=== PATIENT | male | born 1945 | race Two or more races ===

== ENCOUNTER 2022-10-26 08:17 | Outpatient (CLI) | payer MEDICARE, OTHER | END 2022-10-26 23:59 | disposition home or self-care (01) | LOC: LAB 08:17 | PROVIDERS: ATTEND Orthopaedic Surgery | DX: Z01.812 Encounter for preprocedural laboratory examination (principal); Z20.822 Contact with and (suspected) exposure to COVID-19 | CPT/HCPCS: U0003; C9803 ==

== ENCOUNTER 2022-11-02 07:00 | Inpatient (IN) | payer MEDICARE, OTHER ==
[~2022-11-02] VITALS: Ht 170.2 cm; Wt 105.8 kg
[2022-11-02] MEDS ORDERED: POLYMYXIN B SULFATE 500,000 UNITS ONE (07:08)
[2022-11-02] MEDS ORDERED: BUPIVACAINE 0.25% 75 MG/30 ML VIAL ONE ×2 (07:09→11:23)
[2022-11-02 08:00] VITALS: BP 202/110
[2022-11-02 08:10] VITALS: BP 200/110
[2022-11-02] MEDS ORDERED: CARV12.52 PO (08:40)
[2022-11-02] MEDS ORDERED: DILT-32 PO (08:40)
[2022-11-02] MEDS ORDERED: METF-440 PO (08:40)
[2022-11-02] MEDS ORDERED: SITA50TA PO (08:40)
[2022-11-02] MEDS ORDERED: ALOG25TA2 PO (08:40)
[2022-11-02] MEDS ORDERED: TRIA1TAB98 PO (08:40)
[2022-11-02] MEDS ORDERED: MECL-159 PO (08:40)
[2022-11-02] MEDS ORDERED: NIFE-34 PO (08:40)
[2022-11-02] MEDS ORDERED: LOSA50TA39 PO (08:40)
[2022-11-02] MEDS ORDERED: NABU-139 PO (08:40)
[2022-11-02] MEDS ORDERED: GABA-532 PO (08:40)
[2022-11-02] MEDS ORDERED: TAMS-12 PO (08:40)
[2022-11-02] MEDS ORDERED: GEMF600T90 PO (08:40)
[2022-11-02] MEDS ORDERED: AMLO-213 PO (08:40)
[2022-11-02] MEDS ORDERED: CELECOXIB 100 MG CAPSULE PO STA (09:44)
[2022-11-02] MEDS ORDERED: ACETAMINOPHEN ES 500 MG TABLET PO STA (09:44)
[2022-11-02] MEDS ORDERED: GABAPENTIN 300 MG CAPSULE PO STA (09:44)
[2022-11-02] MEDS ORDERED: CLONIDINE HCL 0.1 MG TABLET PO PRN (10:30)
[2022-11-02] MEDS ORDERED: MAG HYDROX/AL HYDROX/SIMETH 30 ML UDC PO PRN (10:30)
[2022-11-02] MEDS ORDERED: diphenhydrAMINE HCL 25 MG CAPSULE PO PRN (10:30)
[2022-11-02] MEDS ORDERED: MAGNESIUM HYDROXIDE 30 ML UDC PO PRN (10:30)
[2022-11-02] MEDS ORDERED: FENTANYL PF 100MCG/2ML AMPUL ONE ×2 (10:41→10:59)
[2022-11-02] MEDS ORDERED: HYDROMORPHONE INJ 2 MG/ML DISP.SYRIN ONE (10:42)
[2022-11-02] MEDS ORDERED: TRANEXAMIC ACID 1,000 MG/10 ML VIAL ONE (10:42)
[2022-11-02] MEDS ORDERED: BUPIVACAINE MPF 0.75% 30 ML VIAL ONE (10:42)
[2022-11-02] MEDS ORDERED: MIDAZOLAM HCL 2 MG/2ML VIAL ONE (10:51)
[2022-11-02] MEDS ORDERED: ROCURONIUM BROMIDE 50 MG/5 ML ONE (10:59)
[2022-11-02] MEDS ORDERED: MORPHINE SULFATE/PF 10 MG/10ML (1MG/ML) AMPUL ONE (11:23)
[2022-11-02] MEDS ORDERED: hydrALAZINE HCL IV 20 MG VIAL ONE (11:43)
[2022-11-02] MEDS ORDERED: SENNOSIDES 8.6 MG TABLET PO PRN ×2 (14:30)
[2022-11-02] MEDS ORDERED: BISACODYL SUPP (10 MG) 10 MG/SUPP.RECT SUPP.RECT RC PRN (14:30)
[2022-11-02] MEDS ORDERED: ONDANSETRON HCL/PF 4 MG/2 ML VIAL IVP PRN ×2 (14:30→18:30)
[2022-11-02] MEDS: HYDROMORPHONE 1 MG/1 ML DISP.SYRIN IM/IV/SC PRN (14:34)
[2022-11-02 16:09] VITALS: BP 150/77
[2022-11-02] MEDS: GABAPENTIN 300 MG CAPSULE PO SCH (17:51)
[2022-11-02] MEDS: DOCUSATE SODIUM 100 MG CAPSULE PO SCH (17:51)
[2022-11-02] MEDS: AMLODIPINE BESYLATE 5 MG TABLET PO SCH (17:51)
[2022-11-02] MEDS ORDERED: DEXTROSE 50%-WATER 50 ML DISP.SYRIN IV PRN (18:30)
[2022-11-02] MEDS ORDERED: ACETAMINOPHEN 325 MG TABLET PO PRN (18:30)
[2022-11-02] MEDS: ANCEF 1 GM/50 ML D5W IV SCH ×2 (19:35)
[2022-11-02 20:00] VITALS: BP 153/80
[2022-11-02] MEDS ORDERED: LOSARTAN POTASSIUM 50 MG TABLET PO SCH (21:00)
[2022-11-02] MEDS: FAMOTIDINE (20 MG) 20 MG TABLET PO SCH (21:18)
[2022-11-02] MEDS: BLOOD SUGAR DIAGNOSTIC 1 EACH STRIP VI SCH (21:29)
[2022-11-02] MEDS: *INSULIN REGULAR(HUMULIN R)HUM 100 UNIT/ML VIAL SQ PRN (21:35)
[2022-11-02] MEDS ORDERED: TAMSULOSIN 0.4 MG CAP.SR.24H PO SCH (22:00)
[2022-11-03] MEDS: HYDROCODONE/APAP 5/325MG TABLET PO PRN ×4 (01:57→19:07)
[2022-11-03] MEDS: ANCEF 1 GM/50 ML D5W IV SCH ×2 (03:26)
[2022-11-03] MEDS: AMLODIPINE BESYLATE 5 MG TABLET PO SCH ×2 (06:01→18:14)
[2022-11-03] MEDS: BLOOD SUGAR DIAGNOSTIC 1 EACH STRIP VI SCH ×4 (06:11→22:20)
[2022-11-03] MEDS: INSULIN REGULAR, HUMAN 100 UNIT/ML 3 ML VIAL SQ PRN ×4 (06:17→22:23)
[2022-11-03 06:23] LABS: BASOPHILS % (AUTO) 0.1 % (0.0-2.0); HEMATOCRIT 36 % (39-51); HEMOGLOBIN 11.1 g/dL (13.5-17.5); LYMPHOCYTES # (AUTO) 1.4 K/uL (0.8-4.8); LYMPHOCYTES % (AUTO) 10.1 % (20.0-44.0); MEAN CORPUSCULAR HGB CONC 31 g/dl (31.0-36.0); MEAN CORPUSCULAR VOLUME 91 fL (80-96); MONOCYTES # (AUTO) 1.4 K/uL (0.1-1.30); MONOCYTES % (AUTO) 10.1 % (2.0-12.0); NEUTROPHILS # (AUTO) 10.7 K/uL (1.8-8.9); NEUTROPHILS % (AUTO) 79.7 % (43.0-81.0); PLATELET COUNT (AUTO) 199 K/uL (150-450); RED BLOOD CELL COUNT(AUTO) 3.94 MIL/uL (4.5-6.0); WHITE BLOOD COUNT (AUTO) 13.4 K/uL (4.3-11.0)
[2022-11-03 06:50] LABS: ALANINE AMINOTRANSFERASE 20 U/L (12-78); ALBUMIN 3.3 g/dL (3.4-5.0); ALKALINE PHOSPHATASE 72 U/L (46-116); ASPARTATE AMINOTRANSFERASE 17 U/L (15-37); BILIRUBIN,TOTAL 0.4 mg/dL (0.2-1.0); CALCIUM, SERUM 8.6 mg/dL (8.5-10.1); CARBON DIOXIDE 21 mmol/L (21-32); CHLORIDE 100 mmol/L (98-107); CREATININE 1.8 mg/dL (0.6-1.3); GLUCOSE 173 mg/dL (74-106); MAGNESIUM 1.9 mg/dL (1.8-2.4); PHOSPHORUS 4.1 mg/dL (2.5-4.9); POTASSIUM 4.1 mmol/L (3.5-5.1); SODIUM SERUM 132 mmol/L (136-145); TOTAL PROTEIN, SERUM 6.8 g/dL (6.4-8.2); UREA NITROGEN, BLOOD 28 mg/dL (7-18)
[2022-11-03 08:00] VITALS: BP 151/95
[2022-11-03] MEDS: GABAPENTIN 300 MG CAPSULE PO SCH ×2 (09:00→17:00)
[2022-11-03] MEDS: GABAPENTIN 100 MG CAPSULE PO SCH ×2 (09:00→17:10)
[2022-11-03] MEDS ORDERED: NABUMETONE 500 MG TABLET PO SCH (09:00)
[2022-11-03] MEDS: METFORMIN 500 MG TABLET PO SCH ×2 (09:00→17:10)
[2022-11-03] MEDS: DOCUSATE SODIUM 100 MG CAPSULE PO SCH ×2 (09:01→17:10)
[2022-11-03] MEDS: DILTIAZEM HCL CD 120 MG PO SCH (09:01)
[2022-11-03] MEDS: FAMOTIDINE (20 MG) 20 MG TABLET PO SCH ×2 (09:02→20:48)
[2022-11-03] MEDS: TAMSULOSIN 0.4 MG CAP.SR.24H PO SCH (09:02)
[2022-11-03] MEDS: LOSARTAN POTASSIUM 50 MG TABLET PO SCH ×2 (09:02→17:10)
[2022-11-03] MEDS: NIFEdipine XL (30MG) 30 MG TAB PO SCH (09:03)
[2022-11-03] MEDS: CARVEDILOL 12.5 MG TABLET PO SCH (09:03)
[2022-11-03] MEDS: MECLIZINE HCL 25 MG TABLET PO SCH ×3 (09:04→17:09)
[2022-11-03] MEDS: LINAGLIPTIN 5 MG TABLET PO SCH (09:04)
[2022-11-03] MEDS: GEMFIBROZIL 600 MG TABLET PO SCH (09:04)
[2022-11-03] MEDS: TRIAMTERENE/HYDROCHLOROTHIAZID (37.5/25MG) 1 UDCAP PO SCH (09:05)
[2022-11-03] MEDS: RIVAROXABAN 10 MG TABLET PO SCH (12:36)
[2022-11-03] MEDS: IV 1/2NS 1000 ML 1,000 ML IV PRN (12:37)
[2022-11-03] MEDS: AMLODIPINE BESYLATE 10 MG TABLET PO SCH (12:40)
[2022-11-03 15:30] LABS: BILIRUBIN,URINE NEGATIVE (NEGATIVE); COLOR,URINE LIGHT YELLOW (YELLOW); LEUKOCYTE ESTERASE ,URINE NEGATIVE (NEGATIVE); NITRITE, URINE NEGATIVE (NEGATIVE); PH,URINE 6.5 (5.0-8.0); PROTEIN,URINE NEGATIVE (NEGATIVE); UGLUCOSE NEGATIVE (NEGATIVE); UROBILINOGEN,URINE 0.2 EU/dL (0.2)
[2022-11-03 16:00] VITALS: BP 146/88
[2022-11-03] MEDS: HYDROMORPHONE 1 MG/1 ML DISP.SYRIN IM/IV/SC PRN ×2 (17:09→23:27)
[2022-11-03 20:00] VITALS: BP 146/79
[2022-11-04] MEDS: BLOOD SUGAR DIAGNOSTIC 1 EACH STRIP VI SCH ×4 (07:05→22:12)
[2022-11-04] MEDS: INSULIN REGULAR, HUMAN 100 UNIT/ML 3 ML VIAL SQ PRN ×3 (07:07→18:45)
[2022-11-04] MEDS: HYDROMORPHONE 1 MG/1 ML DISP.SYRIN IM/IV/SC PRN ×2 (07:38→15:03)
[2022-11-04 08:00] VITALS: BP 139/91
[2022-11-04] MEDS: GABAPENTIN 100 MG CAPSULE PO SCH ×2 (09:00→17:55)
[2022-11-04] MEDS ORDERED: LINAGLIPTIN 5 MG TABLET PO SCH (09:00)
[2022-11-04 09:23] LABS: BASOPHILS % (AUTO) 0.3 % (0.0-2.0); EOSINOPHILS % (AUTO) 0.3 % (0.0-6.0); HEMATOCRIT 33 % (39-51); HEMOGLOBIN 10.6 g/dL (13.5-17.5); LYMPHOCYTES % (AUTO) 14.1 % (20.0-44.0); MEAN CORPUSCULAR HGB CONC 32 g/dl (31.0-36.0); MEAN CORPUSCULAR VOLUME 88 fL (80-96); MONOCYTES # (AUTO) 1.7 K/uL (0.1-1.30); MONOCYTES % (AUTO) 12.4 % (2.0-12.0); NEUTROPHILS # (AUTO) 10.3 K/uL (1.8-8.9); NEUTROPHILS % (AUTO) 72.9 % (43.0-81.0); PLATELET COUNT (AUTO) 193 K/uL (150-450); RED BLOOD CELL COUNT(AUTO) 3.76 MIL/uL (4.5-6.0); WHITE BLOOD COUNT (AUTO) 14.1 K/uL (4.3-11.0)
[2022-11-04 09:43] LABS: CALCIUM, SERUM 8.7 mg/dL (8.5-10.1); CARBON DIOXIDE 27 mmol/L (21-32); CHLORIDE 100 mmol/L (98-107); CREATININE 1.5 mg/dL (0.6-1.3); GLUCOSE 172 mg/dL (74-106); POTASSIUM 3.9 mmol/L (3.5-5.1); SODIUM SERUM 133 mmol/L (136-145); UREA NITROGEN, BLOOD 32 mg/dL (7-18)
[2022-11-04 09:52] LABS: ALANINE AMINOTRANSFERASE 17 U/L (12-78); ALBUMIN 3.2 g/dL (3.4-5.0); ALKALINE PHOSPHATASE 65 U/L (46-116); ASPARTATE AMINOTRANSFERASE 19 U/L (15-37); BILIRUBIN,TOTAL 0.7 mg/dL (0.2-1.0); TOTAL PROTEIN, SERUM 6.9 g/dL (6.4-8.2)
[2022-11-04] MEDS: METFORMIN 500 MG TABLET PO SCH ×2 (10:27→17:54)
[2022-11-04] MEDS: GABAPENTIN 300 MG CAPSULE PO SCH ×2 (10:27→17:00)
[2022-11-04] MEDS: LINAGLIPTIN 5 MG TABLET PO SCH (10:27)
[2022-11-04] MEDS: FAMOTIDINE (20 MG) 20 MG TABLET PO SCH ×2 (10:28→20:02)
[2022-11-04] MEDS: TRIAMTERENE/HYDROCHLOROTHIAZID (37.5/25MG) 1 UDCAP PO SCH (10:28)
[2022-11-04] MEDS: NIFEdipine XL (30MG) 30 MG TAB PO SCH (10:28)
[2022-11-04] MEDS: GEMFIBROZIL 600 MG TABLET PO SCH (10:28)
[2022-11-04] MEDS: DOCUSATE SODIUM 100 MG CAPSULE PO SCH ×2 (10:28→17:54)
[2022-11-04] MEDS: MECLIZINE HCL 25 MG TABLET PO SCH ×3 (10:28→17:55)
[2022-11-04] MEDS: LOSARTAN POTASSIUM 50 MG TABLET PO SCH ×2 (10:29→17:00)
[2022-11-04] MEDS: AMLODIPINE BESYLATE 10 MG TABLET PO SCH (10:29)
[2022-11-04] MEDS: CARVEDILOL 12.5 MG TABLET PO SCH (10:30)
[2022-11-04] MEDS: TAMSULOSIN 0.4 MG CAP.SR.24H PO SCH (10:30)
[2022-11-04] MEDS: DILTIAZEM HCL CD 120 MG PO SCH (10:30)
[2022-11-04] MEDS: IV 1/2NS 1000 ML 1,000 ML IV PRN (15:53)
[2022-11-04 15:55] VITALS: BP 117/61
[2022-11-04] MEDS: RIVAROXABAN 10 MG TABLET PO SCH (18:01)
[2022-11-04 20:00] VITALS: BP 104/61
[2022-11-04] MEDS: HYDROCODONE/APAP 5/325MG TABLET PO PRN (20:02)
[2022-11-04] MEDS: *INSULIN REGULAR(HUMULIN R)HUM 100 UNIT/ML VIAL SQ PRN (21:40)
[2022-11-04 22:16] VITALS: BP 104/61
[2022-11-05] MEDS: INSULIN REGULAR, HUMAN 100 UNIT/ML 3 ML VIAL SQ PRN ×3 (05:48→17:27)
[2022-11-05] MEDS: IV 1/2NS 1000 ML 1,000 ML IV PRN (06:09)
[2022-11-05 06:12] LABS: BASOPHILS % (AUTO) 0.2 % (0.0-2.0); EOSINOPHILS % (AUTO) 0.5 % (0.0-6.0); HEMATOCRIT 31 % (39-51); LYMPHOCYTES # (AUTO) 2.4 K/uL (0.8-4.8); LYMPHOCYTES % (AUTO) 15.7 % (20.0-44.0); MEAN CORPUSCULAR HGB CONC 33 g/dl (31.0-36.0); MEAN CORPUSCULAR VOLUME 87 fL (80-96); MONOCYTES # (AUTO) 1.8 K/uL (0.1-1.30); MONOCYTES % (AUTO) 11.8 % (2.0-12.0); NEUTROPHILS % (AUTO) 71.8 % (43.0-81.0); PLATELET COUNT (AUTO) 208 K/uL (150-450); RED BLOOD CELL COUNT(AUTO) 3.51 MIL/uL (4.5-6.0); WHITE BLOOD COUNT (AUTO) 15.4 K/uL (4.3-11.0)
[2022-11-05 06:23] LABS: ALANINE AMINOTRANSFERASE 16 U/L (12-78); ALBUMIN 2.6 g/dL (3.4-5.0); ALKALINE PHOSPHATASE 59 U/L (46-116); ASPARTATE AMINOTRANSFERASE 15 U/L (15-37); BILIRUBIN,TOTAL 0.4 mg/dL (0.2-1.0); CALCIUM, SERUM 8.6 mg/dL (8.5-10.1); CARBON DIOXIDE 22 mmol/L (21-32); CHLORIDE 100 mmol/L (98-107); CREATININE 2.8 mg/dL (0.6-1.3); GLUCOSE 176 mg/dL (74-106); SODIUM SERUM 132 mmol/L (136-145); TOTAL PROTEIN, SERUM 6.4 g/dL (6.4-8.2); UREA NITROGEN, BLOOD 50 mg/dL (7-18)
[2022-11-05] MEDS: BLOOD SUGAR DIAGNOSTIC 1 EACH STRIP VI SCH ×4 (06:31→22:45)
[2022-11-05] MEDS: MENTHOL/CETYLPYRD (CEPACOL) 1 LOZ LOZENGE PO PRN (06:31)
[2022-11-05 08:18] VITALS: BP 95/56
[2022-11-05] MEDS ORDERED: VANCOMYCIN 1.5 GM in IV D5W 500 ML IV ONE (09:00)
[2022-11-05] MEDS: LOSARTAN POTASSIUM 50 MG TABLET PO SCH ×2 (09:00→17:00)
[2022-11-05] MEDS: CARVEDILOL 12.5 MG TABLET PO SCH (09:00)
[2022-11-05] MEDS: TRIAMTERENE/HYDROCHLOROTHIAZID (37.5/25MG) 1 UDCAP PO SCH (09:00)
[2022-11-05] MEDS: NIFEdipine XL (30MG) 30 MG TAB PO SCH (09:00)
[2022-11-05] MEDS: AMLODIPINE BESYLATE 10 MG TABLET PO SCH (09:00)
[2022-11-05] MEDS: DILTIAZEM HCL CD 120 MG PO SCH (09:00)
[2022-11-05] MEDS: TAMSULOSIN 0.4 MG CAP.SR.24H PO SCH (09:02)
[2022-11-05] MEDS: FAMOTIDINE (20 MG) 20 MG TABLET PO SCH ×2 (09:02→21:47)
[2022-11-05] MEDS: MECLIZINE HCL 25 MG TABLET PO SCH ×3 (09:02→17:21)
[2022-11-05] MEDS: DOCUSATE SODIUM 100 MG CAPSULE PO SCH ×2 (09:02→17:19)
[2022-11-05] MEDS: GABAPENTIN 300 MG CAPSULE PO SCH ×2 (09:02→17:22)
[2022-11-05] MEDS: GEMFIBROZIL 600 MG TABLET PO SCH (09:06)
[2022-11-05] MEDS: CEFEPIME 2 GM in IV D5W 100 ML IV SCH (09:07)
[2022-11-05] MEDS: HYDROMORPHONE 1 MG/1 ML DISP.SYRIN IM/IV/SC PRN (09:15)
[2022-11-05 15:21] LABS: BILIRUBIN,URINE NEGATIVE (NEGATIVE); COLOR,URINE YELLOW (YELLOW); LEUKOCYTE ESTERASE ,URINE NEGATIVE (NEGATIVE); NITRITE, URINE NEGATIVE (NEGATIVE); PROTEIN,URINE TRACE mg/dl (NEGATIVE); UGLUCOSE NEGATIVE (NEGATIVE); UROBILINOGEN,URINE 0.2 EU/dL (0.2)
[2022-11-05 15:36] LABS: BACTERIA,URINE Moderate /HPF (None Seen); RBC,URINE NONE SEEN /HPF (0-2); SQUAMOUS EPITHELIAL CELL,UR Few /HPF (None Seen); WBC,URINE 0-2 /HPF (0-3)
[2022-11-05 15:53] VITALS: BP_SYST 100; BP_SYST 93; BP_DIAS 53; BP_DIAS 56
[2022-11-05] MEDS: RIVAROXABAN 10 MG TABLET PO SCH (17:23)
[2022-11-05 20:00] VITALS: BP 105/52
[2022-11-05] MEDS: *INSULIN REGULAR(HUMULIN R)HUM 100 UNIT/ML VIAL SQ PRN (22:49)
[2022-11-06] MEDS: IV 1/2NS 1000 ML 1,000 ML IV PRN (02:34)
[2022-11-06 06:12] LABS: BASOPHILS % (AUTO) 0.1 % (0.0-2.0); EOSINOPHILS % (AUTO) 0.8 % (0.0-6.0); HEMATOCRIT 31 % (39-51); LYMPHOCYTES % (AUTO) 14.4 % (20.0-44.0); MEAN CORPUSCULAR HGB CONC 32 g/dl (31.0-36.0); MEAN CORPUSCULAR VOLUME 87 fL (80-96); MONOCYTES # (AUTO) 1.7 K/uL (0.1-1.30); MONOCYTES % (AUTO) 11.9 % (2.0-12.0); NEUTROPHILS # (AUTO) 10.3 K/uL (1.8-8.9); NEUTROPHILS % (AUTO) 72.8 % (43.0-81.0); PLATELET COUNT (AUTO) 253 K/uL (150-450); RED BLOOD CELL COUNT(AUTO) 3.55 MIL/uL (4.5-6.0); WHITE BLOOD COUNT (AUTO) 14.2 K/uL (4.3-11.0)
[2022-11-06 06:34] LABS: ALANINE AMINOTRANSFERASE 21 U/L (12-78); ALBUMIN 2.6 g/dL (3.4-5.0); ALKALINE PHOSPHATASE 71 U/L (46-116); ASPARTATE AMINOTRANSFERASE 28 U/L (15-37); BILIRUBIN,TOTAL 0.5 mg/dL (0.2-1.0); CALCIUM, SERUM 8.6 mg/dL (8.5-10.1); CARBON DIOXIDE 22 mmol/L (21-32); CHLORIDE 99 mmol/L (98-107); CREATININE 2.8 mg/dL (0.6-1.3); GLUCOSE 174 mg/dL (74-106); POTASSIUM 3.8 mmol/L (3.5-5.1); SODIUM SERUM 132 mmol/L (136-145); TOTAL PROTEIN, SERUM 6.7 g/dL (6.4-8.2); UREA NITROGEN, BLOOD 66 mg/dL (7-18)
[2022-11-06] MEDS: BLOOD SUGAR DIAGNOSTIC 1 EACH STRIP VI SCH ×4 (06:55→21:19)
[2022-11-06] MEDS: INSULIN REGULAR, HUMAN 100 UNIT/ML 3 ML VIAL SQ PRN ×3 (07:27→16:47)
[2022-11-06 08:13] VITALS: BP 136/72
[2022-11-06] MEDS: CARVEDILOL 12.5 MG TABLET PO SCH (08:15)
[2022-11-06] MEDS: GABAPENTIN 300 MG CAPSULE PO SCH ×2 (08:15→16:19)
[2022-11-06] MEDS: DOCUSATE SODIUM 100 MG CAPSULE PO SCH ×2 (08:15→16:20)
[2022-11-06] MEDS: DILTIAZEM HCL CD 120 MG PO SCH (08:15)
[2022-11-06] MEDS: TRIAMTERENE/HYDROCHLOROTHIAZID (37.5/25MG) 1 UDCAP PO SCH (08:16)
[2022-11-06] MEDS: AMLODIPINE BESYLATE 10 MG TABLET PO SCH (08:16)
[2022-11-06] MEDS: MECLIZINE HCL 25 MG TABLET PO SCH ×3 (08:16→16:20)
[2022-11-06] MEDS: FAMOTIDINE (20 MG) 20 MG TABLET PO SCH ×2 (08:16→21:18)
[2022-11-06] MEDS: TAMSULOSIN 0.4 MG CAP.SR.24H PO SCH (08:16)
[2022-11-06] MEDS: NIFEdipine XL (30MG) 30 MG TAB PO SCH (08:16)
[2022-11-06] MEDS: GEMFIBROZIL 600 MG TABLET PO SCH (08:16)
[2022-11-06] MEDS: CEFEPIME 2 GM in IV D5W 100 ML IV SCH (08:23)
[2022-11-06] MEDS: LOSARTAN POTASSIUM 50 MG TABLET PO SCH ×2 (08:23→16:20)
[2022-11-06] MEDS: HYDROMORPHONE 1 MG/1 ML DISP.SYRIN IM/IV/SC PRN (08:32)
[2022-11-06] MEDS: IV NS 0.9% 1,000 ML IV SCH ×2 (10:11→22:57)
[2022-11-06 16:01] VITALS: BP_SYST 118; BP_DIAS 66; BP_DIAS 75
[2022-11-06] MEDS: RIVAROXABAN 10 MG TABLET PO SCH (16:21)
[2022-11-06 20:21] VITALS: BP 118/60
[2022-11-06] MEDS ORDERED: VANCOMYCIN 1.25 GM in IV D5W 250 ML IV SCH (21:00)
[2022-11-06] MEDS: *INSULIN REGULAR(HUMULIN R)HUM 100 UNIT/ML VIAL SQ PRN (21:33)
[2022-11-07 05:48] LABS: BASOPHILS % (AUTO) 0.1 % (0.0-2.0); EOSINOPHILS % (AUTO) 0.4 % (0.0-6.0); HEMATOCRIT 27 % (39-51); HEMOGLOBIN 8.9 g/dL (13.5-17.5); LYMPHOCYTES # (AUTO) 2.1 K/uL (0.8-4.8); LYMPHOCYTES % (AUTO) 16.5 % (20.0-44.0); MEAN CORPUSCULAR HGB CONC 33 g/dl (31.0-36.0); MEAN CORPUSCULAR VOLUME 88 fL (80-96); MONOCYTES # (AUTO) 1.9 K/uL (0.1-1.30); MONOCYTES % (AUTO) 14.5 % (2.0-12.0); NEUTROPHILS # (AUTO) 8.8 K/uL (1.8-8.9); NEUTROPHILS % (AUTO) 68.5 % (43.0-81.0); PLATELET COUNT (AUTO) 271 K/uL (150-450); RED BLOOD CELL COUNT(AUTO) 3.13 MIL/uL (4.5-6.0); WHITE BLOOD COUNT (AUTO) 12.9 K/uL (4.3-11.0)
[2022-11-07 06:10] LABS: ALANINE AMINOTRANSFERASE 21 U/L (12-78); ALBUMIN 2.2 g/dL (3.4-5.0); ALKALINE PHOSPHATASE 66 U/L (46-116); ASPARTATE AMINOTRANSFERASE 20 U/L (15-37); BILIRUBIN,TOTAL 0.6 mg/dL (0.2-1.0); CALCIUM, SERUM 8.6 mg/dL (8.5-10.1); CARBON DIOXIDE 21 mmol/L (21-32); CHLORIDE 104 mmol/L (98-107); CREATININE 2.3 mg/dL (0.6-1.3); GLUCOSE 164 mg/dL (74-106); MAGNESIUM 2.6 mg/dL (1.8-2.4); PHOSPHORUS 4.8 mg/dL (2.5-4.9); POTASSIUM 4.5 mmol/L (3.5-5.1); SODIUM SERUM 136 mmol/L (136-145); TOTAL PROTEIN, SERUM 6.4 g/dL (6.4-8.2); UREA NITROGEN, BLOOD 70 mg/dL (7-18)
[2022-11-07] MEDS: INSULIN REGULAR, HUMAN 100 UNIT/ML 3 ML VIAL SQ PRN ×3 (06:25→17:09)
[2022-11-07] MEDS: BLOOD SUGAR DIAGNOSTIC 1 EACH STRIP VI SCH ×4 (06:32→21:32)
[2022-11-07 08:00] VITALS: BP 119/59
[2022-11-07] MEDS: DOCUSATE SODIUM 100 MG CAPSULE PO SCH ×2 (09:16→16:50)
[2022-11-07] MEDS: CEFEPIME 2 GM in IV D5W 100 ML IV SCH (09:16)
[2022-11-07] MEDS: GABAPENTIN 300 MG CAPSULE PO SCH ×2 (09:17→16:50)
[2022-11-07] MEDS: GEMFIBROZIL 600 MG TABLET PO SCH (09:17)
[2022-11-07] MEDS: TRIAMTERENE/HYDROCHLOROTHIAZID (37.5/25MG) 1 UDCAP PO SCH (09:17)
[2022-11-07] MEDS: MECLIZINE HCL 25 MG TABLET PO SCH ×3 (09:17→16:53)
[2022-11-07] MEDS: TAMSULOSIN 0.4 MG CAP.SR.24H PO SCH (09:18)
[2022-11-07] MEDS: NIFEdipine XL (30MG) 30 MG TAB PO SCH (09:18)
[2022-11-07] MEDS: FAMOTIDINE (20 MG) 20 MG TABLET PO SCH ×2 (09:18→20:59)
[2022-11-07] MEDS: AMLODIPINE BESYLATE 10 MG TABLET PO SCH (09:18)
[2022-11-07] MEDS: DILTIAZEM HCL CD 120 MG PO SCH (09:19)
[2022-11-07] MEDS: CARVEDILOL 12.5 MG TABLET PO SCH (09:19)
[2022-11-07] MEDS: LOSARTAN POTASSIUM 50 MG TABLET PO SCH ×2 (09:19→16:53)
[2022-11-07] MEDS: HYDROCODONE/APAP 5/325MG TABLET PO PRN ×2 (09:25→20:59)
[2022-11-07] MEDS: IV NS 0.9% 1,000 ML IV PRN (11:11)
[2022-11-07] MEDS: MENTHOL/CETYLPYRD (CEPACOL) 1 LOZ LOZENGE PO PRN (12:09)
[2022-11-07 16:00] VITALS: BP 107/53
[2022-11-07] MEDS: RIVAROXABAN 10 MG TABLET PO SCH (16:53)
[2022-11-07 20:00] VITALS: BP 111/66
[2022-11-07] MEDS: VANCOMYCIN 1 GM in IV D5W 250 ML IV SCH (20:59)
[2022-11-07] MEDS: *INSULIN REGULAR(HUMULIN R)HUM 100 UNIT/ML VIAL SQ PRN (21:36)
[2022-11-08] MEDS: IV NS 0.9% 1,000 ML IV PRN (04:03)
[2022-11-08 06:13] LABS: BASOPHILS % (AUTO) 0.3 % (0.0-2.0); EOSINOPHILS % (AUTO) 0.8 % (0.0-6.0); HEMATOCRIT 29 % (39-51); HEMOGLOBIN 9.6 g/dL (13.5-17.5); LYMPHOCYTES # (AUTO) 1.8 K/uL (0.8-4.8); LYMPHOCYTES % (AUTO) 16.7 % (20.0-44.0); MEAN CORPUSCULAR HGB CONC 33 g/dl (31.0-36.0); MEAN CORPUSCULAR VOLUME 88 fL (80-96); MONOCYTES # (AUTO) 1.4 K/uL (0.1-1.30); MONOCYTES % (AUTO) 12.7 % (2.0-12.0); NEUTROPHILS # (AUTO) 7.6 K/uL (1.8-8.9); NEUTROPHILS % (AUTO) 69.5 % (43.0-81.0); PLATELET COUNT (AUTO) 312 K/uL (150-450); WHITE BLOOD COUNT (AUTO) 10.9 K/uL (4.3-11.0)
[2022-11-08 06:24] LABS: ALANINE AMINOTRANSFERASE 22 U/L (12-78); ALBUMIN 2.3 g/dL (3.4-5.0); ALKALINE PHOSPHATASE 68 U/L (46-116); ASPARTATE AMINOTRANSFERASE 21 U/L (15-37); BILIRUBIN,TOTAL 0.5 mg/dL (0.2-1.0); CALCIUM, SERUM 8.7 mg/dL (8.5-10.1); CARBON DIOXIDE 20 mmol/L (21-32); CHLORIDE 104 mmol/L (98-107); GLUCOSE 151 mg/dL (74-106); MAGNESIUM 2.7 mg/dL (1.8-2.4); PHOSPHORUS 4.6 mg/dL (2.5-4.9); POTASSIUM 4.1 mmol/L (3.5-5.1); SODIUM SERUM 134 mmol/L (136-145); TOTAL PROTEIN, SERUM 6.8 g/dL (6.4-8.2); UREA NITROGEN, BLOOD 69 mg/dL (7-18)
[2022-11-08] MEDS: BLOOD SUGAR DIAGNOSTIC 1 EACH STRIP VI SCH ×4 (06:34→22:41)
[2022-11-08] MEDS: INSULIN REGULAR, HUMAN 100 UNIT/ML 3 ML VIAL SQ PRN ×3 (06:34→17:26)
[2022-11-08 08:00] VITALS: BP 119/56
[2022-11-08] MEDS: TRIAMTERENE/HYDROCHLOROTHIAZID (37.5/25MG) 1 UDCAP PO SCH (09:01)
[2022-11-08] MEDS: DOCUSATE SODIUM 100 MG CAPSULE PO SCH ×2 (09:01→17:23)
[2022-11-08] MEDS: MECLIZINE HCL 25 MG TABLET PO SCH ×3 (09:01→17:23)
[2022-11-08] MEDS: GABAPENTIN 300 MG CAPSULE PO SCH ×2 (09:01→17:23)
[2022-11-08] MEDS: HYDROCODONE/APAP 5/325MG TABLET PO PRN ×2 (09:01→10:40)
[2022-11-08] MEDS: FAMOTIDINE (20 MG) 20 MG TABLET PO SCH ×2 (09:02→21:28)
[2022-11-08] MEDS: DILTIAZEM HCL CD 120 MG PO SCH (09:02)
[2022-11-08] MEDS: LOSARTAN POTASSIUM 50 MG TABLET PO SCH ×2 (09:02→17:24)
[2022-11-08] MEDS: CARVEDILOL 12.5 MG TABLET PO SCH (09:02)
[2022-11-08] MEDS: TAMSULOSIN 0.4 MG CAP.SR.24H PO SCH (09:03)
[2022-11-08] MEDS: GEMFIBROZIL 600 MG TABLET PO SCH (09:03)
[2022-11-08] MEDS: NIFEdipine XL (30MG) 30 MG TAB PO SCH (09:03)
[2022-11-08] MEDS: AMLODIPINE BESYLATE 10 MG TABLET PO SCH (09:03)
[2022-11-08] MEDS: CEFEPIME 2 GM in IV D5W 100 ML IV SCH (09:17)
[2022-11-08 09:48] VITALS: BP 147/81
[2022-11-08 16:00] VITALS: BP 128/74
[2022-11-08] MEDS: RIVAROXABAN 10 MG TABLET PO SCH (17:23)
[2022-11-08 20:00] VITALS: BP 104/50
[2022-11-08] MEDS: VANCOMYCIN 1 GM in IV D5W 250 ML IV SCH (21:29)
[2022-11-08] MEDS: *INSULIN REGULAR(HUMULIN R)HUM 100 UNIT/ML VIAL SQ PRN (22:43)
[2022-11-09 06:32] LABS: BASOPHILS % (AUTO) 0.1 % (0.0-2.0); EOSINOPHILS % (AUTO) 0.6 % (0.0-6.0); HEMATOCRIT 28 % (39-51); LYMPHOCYTES # (AUTO) 1.7 K/uL (0.8-4.8); LYMPHOCYTES % (AUTO) 12.9 % (20.0-44.0); MEAN CORPUSCULAR HGB CONC 33 g/dl (31.0-36.0); MEAN CORPUSCULAR VOLUME 89 fL (80-96); MONOCYTES # (AUTO) 1.7 K/uL (0.1-1.30); MONOCYTES % (AUTO) 12.6 % (2.0-12.0); NEUTROPHILS # (AUTO) 9.9 K/uL (1.8-8.9); NEUTROPHILS % (AUTO) 73.8 % (43.0-81.0); PLATELET COUNT (AUTO) 350 K/uL (150-450); RED BLOOD CELL COUNT(AUTO) 3.11 MIL/uL (4.5-6.0); WHITE BLOOD COUNT (AUTO) 13.4 K/uL (4.3-11.0)
[2022-11-09 06:34] LABS: ALANINE AMINOTRANSFERASE 31 U/L (12-78); ALBUMIN 2.3 g/dL (3.4-5.0); ALKALINE PHOSPHATASE 73 U/L (46-116); ASPARTATE AMINOTRANSFERASE 75 U/L (15-37); BILIRUBIN,TOTAL 0.5 mg/dL (0.2-1.0); CALCIUM, SERUM 8.9 mg/dL (8.5-10.1); CARBON DIOXIDE 20 mmol/L (21-32); CHLORIDE 104 mmol/L (98-107); GLUCOSE 165 mg/dL (74-106); PHOSPHORUS 4.8 mg/dL (2.5-4.9); POTASSIUM 4.8 mmol/L (3.5-5.1); SODIUM SERUM 136 mmol/L (136-145); TOTAL PROTEIN, SERUM 6.9 g/dL (6.4-8.2); UREA NITROGEN, BLOOD 71 mg/dL (7-18)
[2022-11-09] MEDS: BLOOD SUGAR DIAGNOSTIC 1 EACH STRIP VI SCH ×4 (07:00→21:08)
[2022-11-09] MEDS: INSULIN REGULAR, HUMAN 100 UNIT/ML 3 ML VIAL SQ PRN ×4 (07:04→21:15)
[2022-11-09 08:06] LABS: BAND % (MANUAL) 6 % (0.0-5.0); LYMPHOCYTES % (MANUAL) 8 % (16-48); METAMYELOCYTES % 1 % (0-0); MONOCYTES % (MANUAL) 6 % (0-11.0); MYELOCYTES % 1 % (0-0); NEUTROPHILS % (MANUAL) 78 (42-76)
[2022-11-09 08:27] VITALS: BP 117/56
[2022-11-09] MEDS: GABAPENTIN 300 MG CAPSULE PO SCH ×2 (08:44→19:00)
[2022-11-09] MEDS: DOCUSATE SODIUM 100 MG CAPSULE PO SCH ×2 (08:44→17:00)
[2022-11-09] MEDS: TAMSULOSIN 0.4 MG CAP.SR.24H PO SCH (08:44)
[2022-11-09] MEDS: TRIAMTERENE/HYDROCHLOROTHIAZID (37.5/25MG) 1 UDCAP PO SCH (08:45)
[2022-11-09] MEDS: NIFEdipine XL (30MG) 30 MG TAB PO SCH (08:45)
[2022-11-09] MEDS: AMLODIPINE BESYLATE 10 MG TABLET PO SCH (08:46)
[2022-11-09] MEDS: DILTIAZEM HCL CD 120 MG PO SCH (08:46)
[2022-11-09] MEDS: GEMFIBROZIL 600 MG TABLET PO SCH (08:46)
[2022-11-09] MEDS: FAMOTIDINE (20 MG) 20 MG TABLET PO SCH ×2 (08:46→20:55)
[2022-11-09] MEDS: LOSARTAN POTASSIUM 50 MG TABLET PO SCH ×3 (08:46→18:59)
[2022-11-09] MEDS: CARVEDILOL 12.5 MG TABLET PO SCH (08:47)
[2022-11-09] MEDS: MECLIZINE HCL 25 MG TABLET PO SCH ×4 (08:49→19:00)
[2022-11-09] MEDS: CEFEPIME 2 GM in IV D5W 100 ML IV SCH (08:49)
[2022-11-09] MEDS: HYDROCODONE/APAP 5/325MG TABLET PO PRN (14:29)
[2022-11-09 15:58] VITALS: BP 124/49
[2022-11-09] MEDS: RIVAROXABAN 10 MG TABLET PO SCH ×2 (17:00→18:58)
[2022-11-09 20:00] VITALS: BP 126/66
[2022-11-09] MEDS: VANCOMYCIN 1 GM in IV D5W 250 ML IV SCH (20:56)
[2022-11-10] VITALS (12 sets, daily range): BP systolic 85–133; BP diastolic 46–71
[2022-11-10 06:07] LABS: CALCIUM, SERUM 8.8 mg/dL (8.5-10.1); CARBON DIOXIDE 20 mmol/L (21-32); CHLORIDE 106 mmol/L (98-107); CREATININE 1.9 mg/dL (0.6-1.3); GLUCOSE 171 mg/dL (74-106); POTASSIUM 4.7 mmol/L (3.5-5.1); SODIUM SERUM 138 mmol/L (136-145); UREA NITROGEN, BLOOD 70 mg/dL (7-18)
[2022-11-10 06:12] LABS: ALANINE AMINOTRANSFERASE 33 U/L (12-78); ALBUMIN 2.2 g/dL (3.4-5.0); ALKALINE PHOSPHATASE 74 U/L (46-116); ASPARTATE AMINOTRANSFERASE 83 U/L (15-37); BILIRUBIN,TOTAL 0.6 mg/dL (0.2-1.0); TOTAL PROTEIN, SERUM 6.8 g/dL (6.4-8.2)
[2022-11-10 06:13] LABS: BASOPHILS % (AUTO) 0.1 % (0.0-2.0); HEMATOCRIT 27 % (39-51); HEMOGLOBIN 8.5 g/dL (13.5-17.5); LYMPHOCYTES # (AUTO) 1.7 K/uL (0.8-4.8); LYMPHOCYTES % (AUTO) 9.6 % (20.0-44.0); MEAN CORPUSCULAR HGB CONC 32 g/dl (31.0-36.0); MEAN CORPUSCULAR VOLUME 88 fL (80-96); MONOCYTES % (AUTO) 11.2 % (2.0-12.0); NEUTROPHILS # (AUTO) 14.2 K/uL (1.8-8.9); NEUTROPHILS % (AUTO) 79.1 % (43.0-81.0); PLATELET COUNT (AUTO) 364 K/uL (150-450); RED BLOOD CELL COUNT(AUTO) 3.01 MIL/uL (4.5-6.0); WHITE BLOOD COUNT (AUTO) 17.9 K/uL (4.3-11.0)
[2022-11-10] MEDS: HYDROCODONE/APAP 5/325MG TABLET PO PRN ×2 (06:14→09:39)
[2022-11-10] MEDS: INSULIN REGULAR, HUMAN 100 UNIT/ML 3 ML VIAL SQ PRN ×3 (06:34→21:25)
[2022-11-10] MEDS: BLOOD SUGAR DIAGNOSTIC 1 EACH STRIP VI SCH ×4 (06:35→21:24)
[2022-11-10] MEDS: GABAPENTIN 300 MG CAPSULE PO SCH ×2 (08:35→17:00)
[2022-11-10] MEDS: LOSARTAN POTASSIUM 50 MG TABLET PO SCH ×2 (08:53→17:00)
[2022-11-10] MEDS: GEMFIBROZIL 600 MG TABLET PO SCH (08:54)
[2022-11-10] MEDS: DILTIAZEM HCL CD 120 MG PO SCH (08:54)
[2022-11-10] MEDS: TRIAMTERENE/HYDROCHLOROTHIAZID (37.5/25MG) 1 UDCAP PO SCH (08:54)
[2022-11-10] MEDS: NIFEdipine XL (30MG) 30 MG TAB PO SCH (08:54)
[2022-11-10] MEDS: BACLOFEN (10 MG) 10 MG TABLET PO SCH ×3 (08:55→17:00)
[2022-11-10] MEDS: CARVEDILOL 12.5 MG TABLET PO SCH (08:55)
[2022-11-10] MEDS: AMLODIPINE BESYLATE 10 MG TABLET PO SCH (08:55)
[2022-11-10] MEDS: FAMOTIDINE (20 MG) 20 MG TABLET PO SCH ×2 (08:55→21:14)
[2022-11-10] MEDS: DOCUSATE SODIUM 100 MG CAPSULE PO SCH ×2 (08:55→17:00)
[2022-11-10] MEDS: MECLIZINE HCL 25 MG TABLET PO SCH ×3 (08:55→17:00)
[2022-11-10] MEDS: CEFEPIME 2 GM in IV D5W 100 ML IV SCH (08:56)
[2022-11-10] MEDS: TAMSULOSIN 0.4 MG CAP.SR.24H PO SCH (09:03)
[2022-11-10 10:38] LABS: BAND % (MANUAL) 3 % (0.0-5.0); BASOPHILS % (MANUAL) 0 % (0.0-2.0); EOSINOPHILS % (MANUAL) 0 % (0-4); LYMPHOCYTES % (MANUAL) 11 % (16-48); METAMYELOCYTES % 2 % (0-0); MONOCYTES % (MANUAL) 10 % (0-11.0); MYELOCYTES % 1 % (0-0); NEUTROPHILS % (MANUAL) 73 (42-76)
[2022-11-10] MEDS: *INSULIN REGULAR(HUMULIN R)HUM 100 UNIT/ML VIAL SQ PRN (12:37)
[2022-11-10] MEDS ORDERED: IV NS 0.9% 500 ML IV ONE ×3 (14:30→18:00)
[2022-11-10] MEDS: POLYETHYLENE GLYCOL 3350 17 GM POWD.PACK PO PRN ×2 (16:23→16:31)
[2022-11-10] MEDS: RIVAROXABAN 10 MG TABLET PO SCH (17:00)
[2022-11-11] VITALS (29 sets, daily range): BP systolic 96–148; BP diastolic 48–85
[2022-11-11 04:25] LABS: BASOPHILS % (AUTO) 0.3 % (0.0-2.0); EOSINOPHILS % (AUTO) 0.7 % (0.0-6.0); HEMATOCRIT 22 % (39-51); HEMOGLOBIN 7.2 g/dL (13.5-17.5); LYMPHOCYTES # (AUTO) 2.2 K/uL (0.8-4.8); MEAN CORPUSCULAR HGB CONC 32 g/dl (31.0-36.0); MEAN CORPUSCULAR VOLUME 88 fL (80-96); MONOCYTES # (AUTO) 1.7 K/uL (0.1-1.30); MONOCYTES % (AUTO) 9.9 % (2.0-12.0); NEUTROPHILS # (AUTO) 13.2 K/uL (1.8-8.9); NEUTROPHILS % (AUTO) 76.1 % (43.0-81.0); PLATELET COUNT (AUTO) 375 K/uL (150-450); RED BLOOD CELL COUNT(AUTO) 2.54 MIL/uL (4.5-6.0); WHITE BLOOD COUNT (AUTO) 17.3 K/uL (4.3-11.0)
[2022-11-11 04:56] LABS: ALANINE AMINOTRANSFERASE 59 U/L (12-78); ALBUMIN 2.1 g/dL (3.4-5.0); ALKALINE PHOSPHATASE 62 U/L (46-116); ASPARTATE AMINOTRANSFERASE 102 U/L (15-37); BILIRUBIN,TOTAL 0.4 mg/dL (0.2-1.0); CALCIUM, SERUM 8.7 mg/dL (8.5-10.1); CARBON DIOXIDE 20 mmol/L (21-32); CHLORIDE 106 mmol/L (98-107); CREATININE 2.4 mg/dL (0.6-1.3); GLUCOSE 146 mg/dL (74-106); PHOSPHORUS 5.5 mg/dL (2.5-4.9); POTASSIUM 4.5 mmol/L (3.5-5.1); SODIUM SERUM 139 mmol/L (136-145); TOTAL PROTEIN, SERUM 6.4 g/dL (6.4-8.2)
[2022-11-11 05:12] LABS: UREA NITROGEN, BLOOD 81 mg/dL (7-18)
[2022-11-11] MEDS: BLOOD SUGAR DIAGNOSTIC 1 EACH STRIP VI SCH ×4 (07:55→22:38)
[2022-11-11] MEDS: IV NS 0.9% 1,000 ML IV PRN (08:04)
[2022-11-11] MEDS: CEFEPIME 2 GM in IV D5W 100 ML IV SCH (08:07)
[2022-11-11] MEDS: FAMOTIDINE (20 MG) 20 MG TABLET PO SCH ×2 (08:46→21:20)
[2022-11-11] MEDS: GABAPENTIN 300 MG CAPSULE PO SCH ×2 (08:46→18:32)
[2022-11-11] MEDS: TAMSULOSIN 0.4 MG CAP.SR.24H PO SCH (08:46)
[2022-11-11] MEDS: DOCUSATE SODIUM 100 MG CAPSULE PO SCH ×2 (08:46→17:00)
[2022-11-11] MEDS: BACLOFEN (10 MG) 10 MG TABLET PO SCH ×3 (08:46→18:32)
[2022-11-11] MEDS: MECLIZINE HCL 25 MG TABLET PO SCH ×3 (08:46→18:32)
[2022-11-11] MEDS: GEMFIBROZIL 600 MG TABLET PO SCH (08:46)
[2022-11-11] MEDS: AMLODIPINE BESYLATE 10 MG TABLET PO SCH (09:00)
[2022-11-11] MEDS ORDERED: Z GUARD REMEDY 4 OZ OINT TP PRN (10:30)
[2022-11-11] MEDS: NIFEdipine XL (30MG) 30 MG TAB PO SCH (12:17)
[2022-11-11] MEDS: RIVAROXABAN 10 MG TABLET PO SCH (17:00)
[2022-11-11] MEDS: *INSULIN REGULAR(HUMULIN R)HUM 100 UNIT/ML VIAL SQ PRN (22:38)
[2022-11-12] MEDS: HYDROCODONE/APAP 5/325MG TABLET PO PRN (01:23)
[2022-11-12 07:07] LABS: BASOPHILS % (AUTO) 0.3 % (0.0-2.0); EOSINOPHILS % (AUTO) 1.1 % (0.0-6.0); HEMATOCRIT 30 % (39-51); HEMOGLOBIN 9.8 g/dL (13.5-17.5); LYMPHOCYTES # (AUTO) 1.2 K/uL (0.8-4.8); LYMPHOCYTES % (AUTO) 9.4 % (20.0-44.0); MEAN CORPUSCULAR HGB CONC 33 g/dl (31.0-36.0); MEAN CORPUSCULAR VOLUME 87 fL (80-96); MONOCYTES % (AUTO) 7.4 % (2.0-12.0); NEUTROPHILS # (AUTO) 10.5 K/uL (1.8-8.9); NEUTROPHILS % (AUTO) 81.8 % (43.0-81.0); PLATELET COUNT (AUTO) 436 K/uL (150-450); RED BLOOD CELL COUNT(AUTO) 3.47 MIL/uL (4.5-6.0); WHITE BLOOD COUNT (AUTO) 12.8 K/uL (4.3-11.0)
[2022-11-12] MEDS: BLOOD SUGAR DIAGNOSTIC 1 EACH STRIP VI SCH ×4 (07:30→22:21)
[2022-11-12 07:36] LABS: ALANINE AMINOTRANSFERASE 82 U/L (12-78); ALBUMIN 2.4 g/dL (3.4-5.0); ALKALINE PHOSPHATASE 80 U/L (46-116); ASPARTATE AMINOTRANSFERASE 98 U/L (15-37); BILIRUBIN,TOTAL 0.5 mg/dL (0.2-1.0); CALCIUM, SERUM 9.3 mg/dL (8.5-10.1); CARBON DIOXIDE 22 mmol/L (21-32); CHLORIDE 108 mmol/L (98-107); CREATININE 1.4 mg/dL (0.6-1.3); GLUCOSE 157 mg/dL (74-106); MAGNESIUM 2.6 mg/dL (1.8-2.4); PHOSPHORUS 4.3 mg/dL (2.5-4.9); POTASSIUM 4.5 mmol/L (3.5-5.1); SODIUM SERUM 141 mmol/L (136-145); TOTAL PROTEIN, SERUM 7.3 g/dL (6.4-8.2); UREA NITROGEN, BLOOD 58 mg/dL (7-18)
[2022-11-12 08:00] VITALS: BP 125/75
[2022-11-12] MEDS: MECLIZINE HCL 25 MG TABLET PO SCH ×3 (10:43→18:35)
[2022-11-12] MEDS: GABAPENTIN 300 MG CAPSULE PO SCH ×2 (10:43→18:36)
[2022-11-12] MEDS: BACLOFEN (10 MG) 10 MG TABLET PO SCH ×3 (10:43→18:36)
[2022-11-12] MEDS: TAMSULOSIN 0.4 MG CAP.SR.24H PO SCH ×2 (10:43→21:22)
[2022-11-12] MEDS: AMLODIPINE BESYLATE 10 MG TABLET PO SCH (10:44)
[2022-11-12] MEDS: GEMFIBROZIL 600 MG TABLET PO SCH (10:57)
[2022-11-12] MEDS: NIFEdipine XL (30MG) 30 MG TAB PO SCH (10:57)
[2022-11-12] MEDS: FAMOTIDINE (20 MG) 20 MG TABLET PO SCH ×2 (10:58→21:23)
[2022-11-12] MEDS: DOCUSATE SODIUM 100 MG CAPSULE PO SCH ×2 (10:58→18:35)
[2022-11-12] MEDS: CEFEPIME 2 GM in IV D5W 100 ML IV SCH (11:00)
[2022-11-12 12:19] VITALS: BP 122/62
[2022-11-12 12:48] LABS: EOSINOPHILS % (MANUAL) 2 % (0-4); LYMPHOCYTES % (MANUAL) 10 % (16-48); MONOCYTES % (MANUAL) 5 % (0-11.0); NEUTROPHILS % (MANUAL) 82 (42-76)
[2022-11-12] MEDS: INSULIN REGULAR, HUMAN 100 UNIT/ML 3 ML VIAL SQ PRN ×2 (13:20→18:51)
[2022-11-12 16:00] VITALS: BP 158/62
[2022-11-12] MEDS ORDERED: HEPARIN INFUSION/D5W 500 ML IV PRN (18:30)
[2022-11-12 20:00] VITALS: BP 139/90
[2022-11-12 20:12] LABS: HEMOGLOBIN 10.1 g/dL (13.5-17.5)
[2022-11-12 22:23] VITALS: BP 139/90
[2022-11-12] MEDS ORDERED: HEPARIN INFUSION/D5W 500 ML IV ONE (22:32)
[2022-11-12] MEDS: MORPHINE SULFATE INJ 2 MG/ML DISP.SYRIN IV PRN (23:18)
[2022-11-12] MEDS: *INSULIN REGULAR(HUMULIN R)HUM 100 UNIT/ML VIAL SQ PRN (23:37)
[2022-11-13] VITALS: BP 143/96
[2022-11-13] MEDS: HYDROCODONE/APAP 5/325MG TABLET PO PRN ×3 (01:07→13:52)
[2022-11-13 04:00] VITALS: BP 148/97
[2022-11-13] MEDS: INSULIN REGULAR, HUMAN 100 UNIT/ML 3 ML VIAL SQ PRN ×4 (05:32→21:49)
[2022-11-13] MEDS: BLOOD SUGAR DIAGNOSTIC 1 EACH STRIP VI SCH ×4 (06:46→21:39)
[2022-11-13 06:47] LABS: BASOPHILS % (AUTO) 0.3 % (0.0-2.0); EOSINOPHILS % (AUTO) 0.8 % (0.0-6.0); HEMATOCRIT 30 % (39-51); HEMOGLOBIN 9.6 g/dL (13.5-17.5); LYMPHOCYTES # (AUTO) 1.6 K/uL (0.8-4.8); LYMPHOCYTES % (AUTO) 12.1 % (20.0-44.0); MEAN CORPUSCULAR HGB CONC 32 g/dl (31.0-36.0); MEAN CORPUSCULAR VOLUME 87 fL (80-96); MONOCYTES % (AUTO) 7.7 % (2.0-12.0); NEUTROPHILS # (AUTO) 10.6 K/uL (1.8-8.9); NEUTROPHILS % (AUTO) 79.1 % (43.0-81.0); PLATELET COUNT (AUTO) 513 K/uL (150-450); RED BLOOD CELL COUNT(AUTO) 3.45 MIL/uL (4.5-6.0); WHITE BLOOD COUNT (AUTO) 13.5 K/uL (4.3-11.0)
[2022-11-13 07:05] LABS: ALBUMIN 2.4 g/dL (3.4-5.0); BILIRUBIN,TOTAL 0.7 mg/dL (0.2-1.0); CALCIUM, SERUM 9.5 mg/dL (8.5-10.1); CREATININE 1.1 mg/dL (0.6-1.3); MAGNESIUM 2.4 mg/dL (1.8-2.4); PHOSPHORUS 4.6 mg/dL (2.5-4.9); POTASSIUM 4.6 mmol/L (3.5-5.1); TOTAL PROTEIN, SERUM 7.6 g/dL (6.4-8.2)
[2022-11-13 07:15] LABS: THYROID STIMULATING HORMONE 1.929 uIU/mL (0.358-3.74)
[2022-11-13] MEDS: MECLIZINE HCL 25 MG TABLET PO SCH ×3 (09:34→17:31)
[2022-11-13] MEDS: NIFEdipine XL (30MG) 30 MG TAB PO SCH (09:35)
[2022-11-13] MEDS: GABAPENTIN 300 MG CAPSULE PO SCH ×2 (09:35→17:31)
[2022-11-13] MEDS: DOCUSATE SODIUM 100 MG CAPSULE PO SCH ×2 (09:35→17:31)
[2022-11-13] MEDS: FAMOTIDINE (20 MG) 20 MG TABLET PO SCH ×2 (09:35→21:26)
[2022-11-13] MEDS: GEMFIBROZIL 600 MG TABLET PO SCH (09:36)
[2022-11-13] MEDS: TAMSULOSIN 0.4 MG CAP.SR.24H PO SCH ×2 (09:36→21:27)
[2022-11-13] MEDS: BACLOFEN (10 MG) 10 MG TABLET PO SCH ×3 (09:36→17:31)
[2022-11-13] MEDS: AMLODIPINE BESYLATE 10 MG TABLET PO SCH (09:37)
[2022-11-13] MEDS: CEFEPIME 2 GM in IV D5W 100 ML IV SCH (09:38)
[2022-11-13 12:02] LABS: BAND % (MANUAL) 2 % (0.0-5.0); LYMPHOCYTES % (MANUAL) 7 % (16-48); MONOCYTES % (MANUAL) 10 % (0-11.0); NEUTROPHILS % (MANUAL) 81 (42-76)
[2022-11-13 20:00] VITALS: BP 151/71
[2022-11-14] VITALS: BP 141/74
[2022-11-14 04:00] VITALS: BP 158/86
[2022-11-14] MEDS: INSULIN REGULAR, HUMAN 100 UNIT/ML 3 ML VIAL SQ PRN ×3 (06:43→17:56)
[2022-11-14] MEDS: BLOOD SUGAR DIAGNOSTIC 1 EACH STRIP VI SCH ×4 (06:55→22:23)
[2022-11-14 08:24] LABS: BASOPHILS % (AUTO) 0.2 % (0.0-2.0); EOSINOPHILS % (AUTO) 2.5 % (0.0-6.0); HEMATOCRIT 33 % (39-51); HEMOGLOBIN 10.4 g/dL (13.5-17.5); LYMPHOCYTES # (AUTO) 1.8 K/uL (0.8-4.8); LYMPHOCYTES % (AUTO) 14.5 % (20.0-44.0); MEAN CORPUSCULAR HGB CONC 32 g/dl (31.0-36.0); MEAN CORPUSCULAR VOLUME 88 fL (80-96); MONOCYTES # (AUTO) 1.1 K/uL (0.1-1.30); MONOCYTES % (AUTO) 8.4 % (2.0-12.0); NEUTROPHILS # (AUTO) 9.5 K/uL (1.8-8.9); NEUTROPHILS % (AUTO) 74.4 % (43.0-81.0); PLATELET COUNT (AUTO) 486 K/uL (150-450); RED BLOOD CELL COUNT(AUTO) 3.73 MIL/uL (4.5-6.0); WHITE BLOOD COUNT (AUTO) 12.8 K/uL (4.3-11.0)
[2022-11-14 08:38] LABS: ALBUMIN 2.5 g/dL (3.4-5.0); BILIRUBIN,TOTAL 0.6 mg/dL (0.2-1.0); CALCIUM, SERUM 9.5 mg/dL (8.5-10.1); CREATININE 1.3 mg/dL (0.6-1.3); MAGNESIUM 2.4 mg/dL (1.8-2.4); PHOSPHORUS 4.7 mg/dL (2.5-4.9); POTASSIUM 4.6 mmol/L (3.5-5.1); TOTAL PROTEIN, SERUM 7.7 g/dL (6.4-8.2)
[2022-11-14] MEDS: NIFEdipine XL (30MG) 30 MG TAB PO SCH (09:34)
[2022-11-14] MEDS: GABAPENTIN 300 MG CAPSULE PO SCH ×2 (09:34→17:52)
[2022-11-14] MEDS: DOCUSATE SODIUM 100 MG CAPSULE PO SCH ×2 (09:34→17:52)
[2022-11-14] MEDS: BACLOFEN (10 MG) 10 MG TABLET PO SCH ×3 (09:34→17:52)
[2022-11-14] MEDS: FAMOTIDINE (20 MG) 20 MG TABLET PO SCH ×2 (09:34→21:57)
[2022-11-14] MEDS: MECLIZINE HCL 25 MG TABLET PO SCH ×3 (09:34→17:52)
[2022-11-14] MEDS: GEMFIBROZIL 600 MG TABLET PO SCH (09:34)
[2022-11-14] MEDS: TAMSULOSIN 0.4 MG CAP.SR.24H PO SCH ×2 (09:35→21:57)
[2022-11-14] MEDS: AMLODIPINE BESYLATE 10 MG TABLET PO SCH (09:35)
[2022-11-14] MEDS: GLUCERNA SHAKE 237 ML CAN PO SCH (17:53)
[2022-11-14 20:00] VITALS: BP 155/73
[2022-11-14 22:30] LABS: BAND % (MANUAL) 2 % (0.0-5.0); EOSINOPHILS % (MANUAL) 3 % (0-4); LYMPHOCYTES % (MANUAL) 16 % (16-48); MONOCYTES % (MANUAL) 4 % (0-11.0); NEUTROPHILS % (MANUAL) 75 (42-76)
[2022-11-14] MEDS: *INSULIN REGULAR(HUMULIN R)HUM 100 UNIT/ML VIAL SQ PRN (22:45)
[2022-11-15 06:09] LABS: BASOPHILS % (AUTO) 0.2 % (0.0-2.0); EOSINOPHILS % (AUTO) 1.7 % (0.0-6.0); HEMATOCRIT 33 % (39-51); HEMOGLOBIN 10.8 g/dL (13.5-17.5); LYMPHOCYTES # (AUTO) 2.2 K/uL (0.8-4.8); LYMPHOCYTES % (AUTO) 12.8 % (20.0-44.0); MEAN CORPUSCULAR HGB CONC 32 g/dl (31.0-36.0); MEAN CORPUSCULAR VOLUME 87 fL (80-96); MONOCYTES # (AUTO) 1.2 K/uL (0.1-1.30); MONOCYTES % (AUTO) 7.1 % (2.0-12.0); NEUTROPHILS # (AUTO) 13.1 K/uL (1.8-8.9); NEUTROPHILS % (AUTO) 78.2 % (43.0-81.0); PLATELET COUNT (AUTO) 459 K/uL (150-450); RED BLOOD CELL COUNT(AUTO) 3.84 MIL/uL (4.5-6.0); WHITE BLOOD COUNT (AUTO) 16.8 K/uL (4.3-11.0)
[2022-11-15 06:29] LABS: ALBUMIN 2.6 g/dL (3.4-5.0); BILIRUBIN,TOTAL 0.5 mg/dL (0.2-1.0); CALCIUM, SERUM 9.5 mg/dL (8.5-10.1); CREATININE 1.2 mg/dL (0.6-1.3); MAGNESIUM 2.4 mg/dL (1.8-2.4); PHOSPHORUS 4.6 mg/dL (2.5-4.9); POTASSIUM 4.9 mmol/L (3.5-5.1); TOTAL PROTEIN, SERUM 7.6 g/dL (6.4-8.2)
[2022-11-15] MEDS: INSULIN REGULAR, HUMAN 100 UNIT/ML 3 ML VIAL SQ PRN ×2 (06:47→12:38)
[2022-11-15] MEDS: BLOOD SUGAR DIAGNOSTIC 1 EACH STRIP VI SCH ×4 (06:48→21:46)
[2022-11-15 08:06] LABS: IMMUNOGLOBULIN A, SERUM 517 mg/dL (61-437); IMMUNOGLOBULIN G, SERUM 953 mg/dL (603-1613); IMMUNOGLOBULIN M, SERUM 45 mg/dL (15-143)
[2022-11-15] MEDS: GLUCERNA SHAKE 237 ML CAN PO SCH ×2 (08:07→18:18)
[2022-11-15 08:15] VITALS: BP 165/93
[2022-11-15] MEDS: MECLIZINE HCL 25 MG TABLET PO SCH ×3 (08:43→18:13)
[2022-11-15] MEDS: TAMSULOSIN 0.4 MG CAP.SR.24H PO SCH ×2 (08:44→21:31)
[2022-11-15] MEDS: hydrALAZINE HCL 50 MG TABLET PO SCH ×3 (08:44→18:14)
[2022-11-15] MEDS: DOCUSATE SODIUM 100 MG CAPSULE PO SCH ×2 (08:44→18:21)
[2022-11-15] MEDS: ISOSORBIDE DINITRATE (20MG) 20 MG TABLET PO SCH ×2 (08:45→18:22)
[2022-11-15] MEDS: BACLOFEN (10 MG) 10 MG TABLET PO SCH ×3 (08:45→18:14)
[2022-11-15] MEDS: AMLODIPINE BESYLATE 10 MG TABLET PO SCH (08:46)
[2022-11-15] MEDS: GABAPENTIN 300 MG CAPSULE PO SCH ×2 (08:46→18:14)
[2022-11-15] MEDS: GEMFIBROZIL 600 MG TABLET PO SCH (08:46)
[2022-11-15] MEDS: FAMOTIDINE (20 MG) 20 MG TABLET PO SCH ×2 (08:47→20:22)
[2022-11-15] MEDS: HYDROCODONE/APAP 5/325MG TABLET PO PRN (08:49)
[2022-11-15 16:24] VITALS: BP 117/73
[2022-11-15 17:44] LABS: EOSINOPHILS % (MANUAL) 2 % (0-4); LYMPHOCYTES % (MANUAL) 19 % (16-48); MONOCYTES % (MANUAL) 5 % (0-11.0); NEUTROPHILS % (MANUAL) 73 (42-76); REACTIVE LYMPHOCYTES 1 % (0-0)
[2022-11-15] MEDS: RIVAROXABAN 10 MG TABLET PO SCH (18:17)
[2022-11-15 20:00] VITALS: BP 126/78
[2022-11-15] MEDS: *INSULIN REGULAR(HUMULIN R)HUM 100 UNIT/ML VIAL SQ PRN (21:52)
[2022-11-16] MEDS: HYDROCODONE/APAP 5/325MG TABLET PO PRN (00:03)
[2022-11-16] MEDS: MORPHINE SULFATE INJ 2 MG/ML DISP.SYRIN IV PRN (03:25)
[2022-11-16] MEDS: BLOOD SUGAR DIAGNOSTIC 1 EACH STRIP VI SCH ×4 (05:25→22:15)
[2022-11-16] MEDS: INSULIN REGULAR, HUMAN 100 UNIT/ML 3 ML VIAL SQ PRN ×5 (06:51→22:15)
[2022-11-16 07:06] LABS: BASOPHILS % (AUTO) 0.2 % (0.0-2.0); EOSINOPHILS % (AUTO) 1.5 % (0.0-6.0); HEMATOCRIT 30 % (39-51); HEMOGLOBIN 9.9 g/dL (13.5-17.5); LYMPHOCYTES # (AUTO) 2.3 K/uL (0.8-4.8); LYMPHOCYTES % (AUTO) 13.5 % (20.0-44.0); MEAN CORPUSCULAR HGB CONC 33 g/dl (31.0-36.0); MEAN CORPUSCULAR VOLUME 86 fL (80-96); MONOCYTES # (AUTO) 1.5 K/uL (0.1-1.30); MONOCYTES % (AUTO) 8.8 % (2.0-12.0); NEUTROPHILS # (AUTO) 12.9 K/uL (1.8-8.9); PLATELET COUNT (AUTO) 419 K/uL (150-450); RED BLOOD CELL COUNT(AUTO) 3.51 MIL/uL (4.5-6.0); WHITE BLOOD COUNT (AUTO) 16.9 K/uL (4.3-11.0)
[2022-11-16 07:24] LABS: ALANINE AMINOTRANSFERASE 46 U/L (12-78); ALBUMIN 2.5 g/dL (3.4-5.0); ALKALINE PHOSPHATASE 80 U/L (46-116); ASPARTATE AMINOTRANSFERASE 24 U/L (15-37); BILIRUBIN,TOTAL 0.4 mg/dL (0.2-1.0); CARBON DIOXIDE 24 mmol/L (21-32); CHLORIDE 103 mmol/L (98-107); CREATININE 1.5 mg/dL (0.6-1.3); GLUCOSE 163 mg/dL (74-106); POTASSIUM 4.4 mmol/L (3.5-5.1); SODIUM SERUM 136 mmol/L (136-145); TOTAL PROTEIN, SERUM 7.2 g/dL (6.4-8.2); UREA NITROGEN, BLOOD 52 mg/dL (7-18)
[2022-11-16 07:35] LABS: MAGNESIUM 2.5 mg/dL (1.8-2.4); PHOSPHORUS 5.3 mg/dL (2.5-4.9)
[2022-11-16 07:40] LABS: EOSINOPHILS % (MANUAL) 1 % (0-4); LYMPHOCYTES % (MANUAL) 12 % (16-48); MONOCYTES % (MANUAL) 10 % (0-11.0); NEUTROPHILS % (MANUAL) 77 (42-76)
[2022-11-16 08:00] VITALS: BP 123/78
[2022-11-16] MEDS: GLUCERNA SHAKE 237 ML CAN PO SCH ×3 (08:45→17:30)
[2022-11-16] MEDS: FAMOTIDINE (20 MG) 20 MG TABLET PO SCH ×2 (09:24→21:18)
[2022-11-16] MEDS: DOCUSATE SODIUM 100 MG CAPSULE PO SCH ×3 (09:25→17:30)
[2022-11-16] MEDS: TAMSULOSIN 0.4 MG CAP.SR.24H PO SCH ×2 (09:25→21:18)
[2022-11-16] MEDS: GABAPENTIN 300 MG CAPSULE PO SCH ×2 (09:25→17:11)
[2022-11-16] MEDS: BACLOFEN (10 MG) 10 MG TABLET PO SCH ×4 (09:25→17:30)
[2022-11-16] MEDS: AMLODIPINE BESYLATE 10 MG TABLET PO SCH (09:26)
[2022-11-16] MEDS: hydrALAZINE HCL 50 MG TABLET PO SCH ×4 (09:27→17:30)
[2022-11-16] MEDS: ISOSORBIDE DINITRATE (20MG) 20 MG TABLET PO SCH ×3 (09:27→17:30)
[2022-11-16] MEDS: RIVAROXABAN 10 MG TABLET PO SCH ×2 (09:29→17:12)
[2022-11-16] MEDS: GEMFIBROZIL 600 MG TABLET PO SCH (09:30)
[2022-11-16] MEDS: MECLIZINE HCL 25 MG TABLET PO SCH ×4 (09:30→17:30)
[2022-11-16 12:07] LABS: *SPE A/G RATIO 0.7 (0.7-1.7); *SPE ALPHA-1-GLOBULIN 0.5 g/dL (0.0-0.4); *SPE ALPHA-2-GLOBULIN 1.1 g/dL (0.4-1.0); *SPE BETA GLOBULIN 1.5 g/dL (0.7-1.3); *SPE M-SPIKE Not Observed g/dL (Not Observed)
[2022-11-16 16:00] VITALS: BP 127/69
[2022-11-16] MEDS ORDERED: LACTULOSE 10 G/15 ML UDC (PYXIS) PO ONE (16:30)
[2022-11-16 20:00] VITALS: BP 117/63
[2022-11-17] MEDS: HYDROCODONE/APAP 5/325MG TABLET PO PRN (05:17)
[2022-11-17] MEDS: INSULIN REGULAR, HUMAN 100 UNIT/ML 3 ML VIAL SQ PRN ×2 (06:45→12:40)
[2022-11-17 07:00] LABS: BASOPHILS % (AUTO) 0.2 % (0.0-2.0); EOSINOPHILS % (AUTO) 0.4 % (0.0-6.0); HEMATOCRIT 31 % (39-51); HEMOGLOBIN 9.9 g/dL (13.5-17.5); LYMPHOCYTES # (AUTO) 1.5 K/uL (0.8-4.8); LYMPHOCYTES % (AUTO) 8.3 % (20.0-44.0); MEAN CORPUSCULAR HGB CONC 32 g/dl (31.0-36.0); MEAN CORPUSCULAR VOLUME 87 fL (80-96); MONOCYTES # (AUTO) 1.7 K/uL (0.1-1.30); MONOCYTES % (AUTO) 9.5 % (2.0-12.0); NEUTROPHILS # (AUTO) 14.8 K/uL (1.8-8.9); NEUTROPHILS % (AUTO) 81.6 % (43.0-81.0); PLATELET COUNT (AUTO) 414 K/uL (150-450); RED BLOOD CELL COUNT(AUTO) 3.55 MIL/uL (4.5-6.0); WHITE BLOOD COUNT (AUTO) 18.1 K/uL (4.3-11.0)
[2022-11-17 07:19] LABS: CALCIUM, SERUM 9.2 mg/dL (8.5-10.1); CARBON DIOXIDE 22 mmol/L (21-32); CHLORIDE 103 mmol/L (98-107); CREATININE 1.5 mg/dL (0.6-1.3); GLUCOSE 180 mg/dL (74-106); POTASSIUM 4.3 mmol/L (3.5-5.1); SODIUM SERUM 136 mmol/L (136-145); UREA NITROGEN, BLOOD 50 mg/dL (7-18)
[2022-11-17 07:24] LABS: ALANINE AMINOTRANSFERASE 36 U/L (12-78); ALBUMIN 2.5 g/dL (3.4-5.0); ALKALINE PHOSPHATASE 80 U/L (46-116); ASPARTATE AMINOTRANSFERASE 19 U/L (15-37); BILIRUBIN,TOTAL 0.6 mg/dL (0.2-1.0); TOTAL PROTEIN, SERUM 7.7 g/dL (6.4-8.2)
[2022-11-17 07:53] LABS: MAGNESIUM 2.6 mg/dL (1.8-2.4); PHOSPHORUS 4.5 mg/dL (2.5-4.9)
[2022-11-17 08:00] VITALS: BP 139/77
[2022-11-17] MEDS: TAMSULOSIN 0.4 MG CAP.SR.24H PO SCH ×2 (09:18→21:13)
[2022-11-17] MEDS: FAMOTIDINE (20 MG) 20 MG TABLET PO SCH ×2 (09:19→21:13)
[2022-11-17] MEDS: ISOSORBIDE DINITRATE (20MG) 20 MG TABLET PO SCH ×2 (09:19→16:26)
[2022-11-17] MEDS: DOCUSATE SODIUM 100 MG CAPSULE PO SCH ×2 (09:19→16:23)
[2022-11-17] MEDS: MECLIZINE HCL 25 MG TABLET PO SCH ×3 (09:19→16:23)
[2022-11-17] MEDS: BACLOFEN (10 MG) 10 MG TABLET PO SCH ×3 (09:20→16:26)
[2022-11-17] MEDS: GEMFIBROZIL 600 MG TABLET PO SCH (09:20)
[2022-11-17] MEDS: AMLODIPINE BESYLATE 10 MG TABLET PO SCH (09:21)
[2022-11-17] MEDS: hydrALAZINE HCL 50 MG TABLET PO SCH ×3 (09:21→16:21)
[2022-11-17] MEDS: GABAPENTIN 300 MG CAPSULE PO SCH ×2 (09:21→16:26)
[2022-11-17] MEDS: RIVAROXABAN 10 MG TABLET PO SCH ×2 (10:04→16:25)
[2022-11-17] MEDS: GLUCERNA SHAKE 237 ML CAN PO SCH (10:05)
[2022-11-17] MEDS: BLOOD SUGAR DIAGNOSTIC 1 EACH STRIP VI SCH ×4 (10:05→21:22)
[2022-11-17 11:44] LABS: BAND % (MANUAL) 1 % (0.0-5.0); EOSINOPHILS % (MANUAL) 1 % (0-4); LYMPHOCYTES % (MANUAL) 7 % (16-48); MONOCYTES % (MANUAL) 6 % (0-11.0); NEUTROPHILS % (MANUAL) 85 (42-76)
[2022-11-17 17:00] VITALS: BP 113/59
[2022-11-17 20:00] VITALS: BP 119/61
[2022-11-18 06:33] LABS: BASOPHILS % (AUTO) 0.3 % (0.0-2.0); EOSINOPHILS % (AUTO) 0.7 % (0.0-6.0); HEMATOCRIT 29 % (39-51); HEMOGLOBIN 9.1 g/dL (13.5-17.5); LYMPHOCYTES # (AUTO) 1.6 K/uL (0.8-4.8); LYMPHOCYTES % (AUTO) 12.3 % (20.0-44.0); MEAN CORPUSCULAR HGB CONC 32 g/dl (31.0-36.0); MEAN CORPUSCULAR VOLUME 86 fL (80-96); MONOCYTES # (AUTO) 1.4 K/uL (0.1-1.30); MONOCYTES % (AUTO) 10.8 % (2.0-12.0); NEUTROPHILS % (AUTO) 75.9 % (43.0-81.0); PLATELET COUNT (AUTO) 382 K/uL (150-450); WHITE BLOOD COUNT (AUTO) 13.1 K/uL (4.3-11.0)
[2022-11-18 06:56] LABS: ALANINE AMINOTRANSFERASE 29 U/L (12-78); ALBUMIN 2.3 g/dL (3.4-5.0); ALKALINE PHOSPHATASE 73 U/L (46-116); ASPARTATE AMINOTRANSFERASE 18 U/L (15-37); BILIRUBIN,TOTAL 0.6 mg/dL (0.2-1.0); CALCIUM, SERUM 9.1 mg/dL (8.5-10.1); CARBON DIOXIDE 25 mmol/L (21-32); CHLORIDE 104 mmol/L (98-107); CREATININE 1.6 mg/dL (0.6-1.3); GLUCOSE 163 mg/dL (74-106); POTASSIUM 4.1 mmol/L (3.5-5.1); SODIUM SERUM 137 mmol/L (136-145); TOTAL PROTEIN, SERUM 7.2 g/dL (6.4-8.2); UREA NITROGEN, BLOOD 57 mg/dL (7-18)
[2022-11-18 08:00] VITALS: BP 158/74
[2022-11-18] MEDS: BLOOD SUGAR DIAGNOSTIC 1 EACH STRIP VI SCH ×2 (08:01→12:46)
[2022-11-18] MEDS: INSULIN REGULAR, HUMAN 100 UNIT/ML 3 ML VIAL SQ PRN ×2 (08:05→12:47)
[2022-11-18] MEDS: BACLOFEN (10 MG) 10 MG TABLET PO SCH ×2 (08:09→14:23)
[2022-11-18] MEDS: FAMOTIDINE (20 MG) 20 MG TABLET PO SCH (08:09)
[2022-11-18] MEDS: MECLIZINE HCL 25 MG TABLET PO SCH ×2 (08:09→14:23)
[2022-11-18] MEDS: DOCUSATE SODIUM 100 MG CAPSULE PO SCH (08:10)
[2022-11-18] MEDS: GEMFIBROZIL 600 MG TABLET PO SCH (08:10)
[2022-11-18] MEDS: ISOSORBIDE DINITRATE (20MG) 20 MG TABLET PO SCH (08:15)
[2022-11-18] MEDS: TAMSULOSIN 0.4 MG CAP.SR.24H PO SCH (08:17)
[2022-11-18] MEDS: RIVAROXABAN 10 MG TABLET PO SCH (08:20)
[2022-11-18] MEDS: hydrALAZINE HCL 50 MG TABLET PO SCH ×2 (08:22→14:26)
[2022-11-18] MEDS: AMLODIPINE BESYLATE 10 MG TABLET PO SCH (08:28)
[2022-11-18] MEDS: GABAPENTIN 300 MG CAPSULE PO SCH (09:18)
[2022-11-18] MEDS ORDERED: GABA300C PO (11:29)
[2022-11-18] MEDS ORDERED: Blood Sugar Diagnostic VI (11:29)
[2022-11-18] MEDS ORDERED: MECL-159 PO (11:29)
[2022-11-18] MEDS ORDERED: FAMO20TA80 PO (11:29)
[2022-11-18] MEDS ORDERED: RIVA10TA PO (11:29)
[2022-11-18] MEDS ORDERED: INSU100V28 SQ (11:29)
[2022-11-18] MEDS ORDERED: POLY17PO29 PO (11:29)
[2022-11-18] MEDS ORDERED: *INS REG SQ (11:29)
[2022-11-18] MEDS ORDERED: DOCU100C36 PO (11:29)
[2022-11-18] MEDS ORDERED: Hydrocodone/Apap 5/325MG PO (11:29)
[2022-11-18] MEDS ORDERED: GEMF600T90 PO (11:29)
[2022-11-18] MEDS ORDERED: SENN-175 PO (11:29)
[2022-11-18] MEDS ORDERED: DIPH25CA49 PO (11:29)
[2022-11-18] MEDS ORDERED: BACL10TA PO (11:29)
[2022-11-18] MEDS ORDERED: BISA10SU61 RC (11:29)
[2022-11-18] MEDS ORDERED: HYDR-4077 PO (11:29)
[2022-11-18] MEDS ORDERED: ISOS20TA8 PO (11:29)
[2022-11-18] MEDS ORDERED: ACET325T53 PO (11:29)
[2022-11-18] MEDS ORDERED: Tamsulosin PO (11:29)
[2022-11-18 14:26] VITALS: BP 154/72
== END 2022-11-18 17:00 | DRG 469 ==
LOC: DS 07:00 → MED 07:07 → TELE 11-10 14:46 → ICU 11-10 16:53 → TELE 11-11 17:51 → MED 11-14 12:05
PROVIDERS: ADMIT Internal Medicine; ATTEND Nurse Practitioner Acute Care
PROC: 0SRC0J9 Replacement of Right Knee Joint with Synthetic Substitute, Cemented, Open Approach (ICD-10-PCS; principal; 2022-11-02)
DX: M17.11 Unilateral primary osteoarthritis, right knee (principal); N17.0 Acute kidney failure with tubular necrosis; R65.11 Systemic inflammatory response syndrome (SIRS) of non-infectious origin with acute organ dysfunction; J90 Pleural effusion, not elsewhere classified; E87.1 Hypo-osmolality and hyponatremia; E44.0 Moderate protein-calorie malnutrition; J98.11 Atelectasis; Z20.822 Contact with and (suspected) exposure to COVID-19; Z79.84 Long term (current) use of oral hypoglycemic drugs; Z79.899 Other long term (current) drug therapy; N40.0 Benign prostatic hyperplasia without lower urinary tract symptoms; E66.01 Morbid (severe) obesity due to excess calories; E78.00 Pure hypercholesterolemia, unspecified; Z87.891 Personal history of nicotine dependence; E11.22 Type 2 diabetes mellitus with diabetic chronic kidney disease; I12.9 Hypertensive chronic kidney disease with stage 1 through stage 4 chronic kidney disease, or unspecified chronic kidney disease; N18.9 Chronic kidney disease, unspecified; Z82.49 Family history of ischemic heart disease and other diseases of the circulatory system; Z83.3 Family history of diabetes mellitus; Z83.49 Family history of other endocrine, nutritional and metabolic diseases; E86.1 Hypovolemia; E88.09 Other disorders of plasma-protein metabolism, not elsewhere classified; D64.9 Anemia, unspecified; D72.821 Monocytosis (symptomatic); D35.02 Benign neoplasm of left adrenal gland; G47.33 Obstructive sleep apnea (adult) (pediatric); N28.1 Cyst of kidney, acquired; D72.829 Elevated white blood cell count, unspecified; I95.9 Hypotension, unspecified; Y92.239 Unspecified place in hospital as the place of occurrence of the external cause; D50.9 Iron deficiency anemia, unspecified; R00.1 Bradycardia, unspecified; T46.1X5A Adverse effect of calcium-channel blockers, initial encounter; T44.7X5A Adverse effect of beta-adrenoreceptor antagonists, initial encounter; R31.9 Hematuria, unspecified; Z68.36 Body mass index [BMI] 36.0-36.9, adult
CPT/HCPCS: 36415; 71045-TC; 71250-TC; 73564-TC; 76770-TC; 80053-TC; 80202-TC; 81001; 82607-TC; 82728-TC; 82784; 82962-TC; 83540-TC; 83735-TC; 83880; 84100-TC; 84155; 84165; 84443-TC; 85025-TC; 85027-TC; 85610-TC; 85730-TC; 86334; 87040-TC; 87081-TC; 87086-TC; 88305-TC; 88311-TC; 92526; 92611-TC; 93307-TC; 93971-TC; 97110-TC; 97112-TC; 97116-TC; 97164; 97530-TC; 97760-TC; A4217; A4223; A4349; A6209; A6253; A6403; C1713; C1776; G0378; J0330; J0360; J0690; J0692; J1170; J1644; J1815; J2250; J2270; J2274; J2405; J2704; J2765; J3010; J3370; J3490; J7030; J7040; J7042; J7050; J7060; J8597